=== PATIENT | male | born 1955 | race Caucasian/White ===

== ENCOUNTER 2024-10-17 12:44 | Outpatient (CLI) | payer OTHER | END 2024-10-17 12:49 | disposition home or self-care (01) | LOC: RAD 12:44 | PROVIDERS: ATTEND Surgery | DX: K40.90 Unilateral inguinal hernia, without obstruction or gangrene, not specified as recurrent (principal); Z01.818 Encounter for other preprocedural examination ==

== ENCOUNTER 2024-11-05 06:00 | Day surgery (SDC) | payer OTHER ==
[2024-10-28 13:46] VITALS: BP 133/81
[~2024-11-05] VITALS: Ht 174 cm; Wt 88.0 kg
[~2024-11-05 06:00] MED LIST: AMLODIPINE-VAL1 EAC2 PO; ATORVASTATIN CA10 MG PO; VERAPAMIL ER240 MG PO
[2024-11-05] MEDS ORDERED: METRONIDAZOLE/SODIUM CHLORIDE 500 MG/100 ML PIGGYBACK IV ONE (12:30)
[2024-11-05] MEDS ORDERED: CEFTRIAXONE SODIUM 2,000 MG VIAL IV ONE (12:30)
[2024-11-05] MEDS ORDERED: ENOXAPARIN SODIUM 40 MG/0.4 ML SYRINGE SUBCUTANEO ONE (12:30)
[2024-11-05] MEDS ORDERED: SUGAMMADEX SODIUM 200 MG/2 ML VIAL IV ONE (13:30)
[2024-11-05] MEDS ORDERED: PERCOCET 5-3251 EACH PO (13:41)
[2024-11-05] MEDS ORDERED: NEURONTIN300 MG PO (13:45)
[2024-11-05] MEDS ORDERED: CELEBREX200MG PO (13:46)
[2024-11-05] MEDS ORDERED: POLY119PG PO (13:46)
[2024-11-05] MEDS ORDERED: MORPHINE SULFATE 4 MG/ML VIAL IV ONE (14:20)
== END 2024-11-05 16:20 | disposition home or self-care (01) ==
LOC: CIR.AMB 06:00
PROVIDERS: ATTEND Surgery
DX: K40.90 Unilateral inguinal hernia, without obstruction or gangrene, not specified as recurrent (principal)
CPT/HCPCS: 49650; C1781